=== PATIENT | female | born 1985 | race Caucasian/White ===

== ENCOUNTER 2020-04-17 | Outpatient (REF) | payer BC, SELFPAY | END 2020-04-17 00:01 | disposition home or self-care (01) | LOC: HO.WFDLNP | PROVIDERS: Visit Provider Family Medicine | DX: Z20.828 Contact with and (suspected) exposure to other viral communicable diseases (principal) | CPT/HCPCS: U0003 ==

== ENCOUNTER 2023-04-29 10:41 | Observation (INO) | payer BC, OTHER, SELFPAY ==
[2023-04-29] VITALS (7 sets, daily range): BP systolic 96–123; BP diastolic 54–81; PULSE 71–90; RESP 11–18; TEMP 36.6–37.1; O2SAT 96–100; BMI 22.2
--- NOTE | ~2023-04-29 | CT_ITS ---
EXAMINATION: CT ANGIOGRAM OF THE CHEST WITH AND WITHOUT CONTRAST (CT PULMONARY ANGIOGRAM FOR PE) CLINICAL INFORMATION: Reason for Exam SOB, dizziness, hypoxia, high risk factors COMPARISON: None available. TECHNIQUE: Prior to contrast administration, noncontrast localization images were obtained. Subsequently, multidetector volumetric imaging was performed from the thoracic inlet to below the diaphragms following the administration of 80 mL Omnipaque 350 intravenous contrast. No contrast reaction reported Sagittal, coronal, and MIP oblique sagittal reformatted images were obtained on the CT workstation, uploaded to PACS, and reviewed. This CT examination was performed using dose optimization techniques as appropriate, variously including the following: *Automated exposure control *Adjustment of mA and/or kV according to patient size (this includes techniques or standardized protocols for targeted exams where dose is matched to indication/reason for exam; i.e. extremities or head) *Use of iterative reconstruction technique Total exam dose-length product 237 mGy-cm FINDINGS: QUALITY OF STUDY/CONTRAST BOLUS: Satisfactory. PULMONARY ARTERIES: No pulmonary emboli. THORACIC AORTA: There is a right aortic arch with no evidence of aneurysm or dissection. LUNG: There is mild centrilobular emphysema without acute consolidation. There are no pulmonary nodules, mass or groundglass density. PLEURA: There is no pleural effusion, thickening or calcification. MEDIASTINUM: Normal heart size. No pericardial effusion. No hilar or mediastinal lymphadenopathy. No evidence of septal bowing or right heart strain. CORONARY ARTERY CALCIFICATION: None visualized on this study. CHEST WALL/AXILLA: No axillary or internal mammary lymphadenopathy. OSSEOUS STRUCTURES: No acute or suspicious osseous abnormality. UPPER ABDOMEN: Visualized liver, spleen, pancreas and bilateral adrenal glands are unremarkable. No reflux of contrast into the hepatic veins to suggest elevated right heart pressures. CT/CT angio chest PE protocol IMPRESSION: 1. No evidence of PE. 2. No evidence of aortic dissection or aneurysm. 3. Right aortic arch. 4. Centrilobular emphysema without acute process. VTE: negative.
--- NOTE | 2023-04-29 11:17 | ECG_ITS ---
Test Reason : sob/chest pain Blood Pressure : / mmHG Vent. Rate : 065 BPM Atrial Rate : 065 BPM P-R Int : 130 ms QRS Dur : 084 ms QT Int : 430 ms P-R-T Axes : 035 073 044 degrees QTc Int : 447 ms Normal sinus rhythm Nonspecific ST and T wave abnormality Borderline ECG No previous ECGs available Referred By: Pauline Nunez Electronically Signed By:DAVI FIGUEREDO
--- NOTE | 2023-04-29 11:17 | ED.GENADULT ---
HPI - General Adult General Chief complaint: Upper Respiratory Symptoms Stated complaint: Respiratory Issues Time Seen by Provider: 04/29/23 11:16 Source: patient Mode of arrival: ambulatory Limitations: no limitations History of Present Illness HPI narrative: Patient is a 37 year old assigned female at with no reported medical history presenting to the emergency department today with chest pain, shortness of breath, and intermittent racing heart. Patient states that over the last 3 days she has felt as though there is an elephant sitting on her chest. Patient states that when she walks 10 feet, she becomes very short of breath and her heart rate increases greatly. Patient denies any dizziness, lightheadedness, abdominal pain, nausea, vomiting, fever, chills, blurry vision, double vision, loss of vision, back pain, night sweats, pain with urination, increased urinary frequency, increased urinary urgency, blood in her urine or stool, syncope or a near syncopal episode, recent trauma or falls, bowel incontinence, bladder incontinence, bowel retention, bladder retention, or any other complaints at this time. Onset (ago): day(s) (3) Location: chest Radiation: non-radiation Severity: moderate Severity scale (1-10): 5 Quality: aching Pain Consistency: constant Relieving factors: none Exacerbating factors: other (activity) Associated symptoms: chest pain and shortness of breath Treatments prior to arrival: none Related Data Home Medications Medication Instructions Recorded Confirmed No Known Home Meds 04/29/23 04/29/23 Allergies Allergy/AdvReac Type Severity Reaction Status Date / Time No Known Allergies Allergy Verified 04/17/20 12:44 Review of Systems Constitutional: Constitutional: Reports no additional constitutional complaints, Denies chills, Denies fever(s) and Denies night sweats Eyes: Eyes: Reports no additional eye complaints, Denies blurry vision, Denies change in vision, Denies diplopia, Denies eye discharge, Denies loss of vision and Denies eye pain ENT: Denies dizziness Cardiovascular: Cardiovascular: Reports no additional cardiovascular complaints, Reports chest pain, Denies lightheadedness, Denies Loss of Consciousness, Reports palpitations, Reports dyspnea and Reports dyspnea on exertion Respiratory: Respiratory: Reports no additional respiratory complaints, Reports dyspnea and Reports dyspnea on exertion Gastrointestinal: Gastrointestinal: Reports no additional gastrointestinal complaints, Denies abdominal pain, Denies melena, Denies hematochezia, Denies change in bowel habits and Denies change in stool character Genitourinary: Genitourinary: Denies hematuria, Denies urinary frequency, Denies dysuria, Denies urinary incontinence, Denies urinary hesitancy and Denies urinary urgency Musculoskeletal: Musculoskeletal: Reports no additional musculoskeletal complaints, Denies numbness and Denies tingling Neurologic: Denies dizziness, Denies loss of vision, Denies numbness and Denies tingling Psychiatric: Psychiatric: Reports no additional psychiatric complaints Endocrine: Endocrine: Reports no additional endocrine complaints and Reports palpitations Hematologic/Lymphatic: Hematologic/Lymphatic: Reports no additional hematologic/lymphatic complaints Allergic/Immunologic: Allergic/Immunologic: Reports no additional allergic/immunologic complaints COUNT INCLUDES THE [facility] Past Medical History Attestation statement: The following information was validated with the patient. Source: old records reviewed and nursing notes reviewed Medical History (Updated 04/30/23 @ 10:28 by AMRIT Holland) High blood copper level Social History Social History Patient Tobacco Use Status: Never used Tobacco Smoked in Last 30 Days: No Use of substances other than those prescribed or required for medical reasons: No Advance Directives: No Advance Directives Information Provided: No Nutrition Risks: No Nutritional Risk Physical Exam ED Vital Signs: Vital Signs - 24 hr 04/29/23 11:19 04/29/23 14:00 04/29/23 17:10 Temperature 97.8 F 98.7 F Pulse Rate 75 78 79 Respiratory Rate 18 18 11 L Blood Pressure 113/68 123/81 Pulse Oximetry 96 98 100 Oxygen Delivery Method Room Air Room Air Room Air 04/29/23 17:11 Temperature Pulse Rate Respiratory Rate Blood Pressure Pulse Oximetry 100 Oxygen Delivery Method Room Air BMI result Body Mass Index 22.2 Const General: cooperative, no acute distress, alert and awake Nutritional Appearance: well nourished Orientation/consciousness: patient oriented x3 Limitations: no limitations HENMT Head: Yes normal to inspection and Yes atraumatic Ears: hearing grossly normal bilaterally and external ears normal General nose exam: Normal external nose present, no nasal discharge noted and no epistaxis Face and sinus: Yes normal facial exam, No abrasion and No laceration Mouth: Normal oral and palatal mucosa present, no drooling and no muffled voice Eyes General: appearance normal, both eyes and all related structures Periorbital: periorbital findings normal Eyelids: Yes eyelids normal Conjunctivae: conjunctivae normal Pupils: Equal, round and reactive pupils present EOM: EOMs intact bilaterally Neck Neck: Yes normal visual inspection, Yes full ROM and Yes no lymphadenopathy Chest Chest palpation & inspection: normal inspection of the chest Resp Effort & Inspection: normal respiratory effort and able to speak in complete sentences Auscultation: clear to auscultation bilaterally Cardio Rate: regular rate Rhythm: regular rhythm GI Inspection: Yes normal to inspection Neuro General: patient oriented x3 and moves all extremities Cranial nerves: Yes Equal, round and reactive pupils present Cognition (Neuro): normal cognition Motor exam (neuro): 5/5 motor strength present throughout Sensory Exam: Normal double simultaneous stimulation for sensation Coordination: [id number] test normal Extrem General: Yes normal to inspection, Yes full ROM and Yes capillary refill normal Psych Appearance: grossly normal Mental Status: mental status grossly normal Affect: normal affect Attitude: cooperative Thought process: Normal thought process present Thought content: Normal thought content present Insight: Good insight present (Psych) Medications Administered Generic Name Dose Route Start Last Admin Trade Name Freq PRN Reason Stop Dose Admin Enoxaparin Sodium 40 mg 04/29/23 19:00 04/29/23 19:51 Enoxaparin Sodium 40 Mg/0.4 Ml Syringe SUBCUT 40 mg Q24H GILDA Administration Sodium Chloride 3 ml 04/30/23 00:00 04/30/23 03:02 0.9 % Sodium Chloride Flush 3 Ml Syringe IVFLUSH 3 ml QSHIFT GILDA Administration Discontinued Medications Generic Name Dose Route Start Last Admin Trade Name Freq PRN Reason Stop Dose Admin Potassium Chloride 10 meq in 100 mls @ 100 mls/hr 04/29/23 13:00 04/29/23 16:00 Potassium Chloride/H20 IV 04/29/23 14:59 Infused Q1H GILDA Infusion Ibuprofen 600 mg 04/30/23 03:18 04/30/23 07:27 Ibuprofen 600 Mg Tablet PO 04/30/23 03:19 600 mg ONCE ONE Administration Iohexol 65 ml 04/29/23 12:52 04/29/23 12:56 Iohexol 350 Mg/Ml 100 Ml Infus..Btl IV 04/29/23 12:53 65 ml ONCE ONE Administration Potassium Chloride 20 meq 04/29/23 12:51 04/29/23 13:20 Potassium Chloride Er 20 Meq Tab.Er.Prt PO 04/29/23 12:52 20 meq ONCE ONE Administration Potassium Chloride 40 meq 04/29/23 17:07 04/29/23 17:20 Potassium Chloride Packet 20 Meq Packet PO 04/29/23 17:08 40 meq ONCE ONE Administration Medical Decision Making Medical Decision Making [facility] Narrative: Patient is a 37 year old assigned female at with no reported medical history presenting to the emergency department today with chest pressure, shortness of breath, and intermittent racing heart. Patient's physical exam was unremarkable. Patient's blood work showed a decreased potassium of 2.8 but was otherwise unremarkable. Patient's urine showed no acute process. Patient's EKG showed some t wave inversion but otherwise unremarkable. Patient's CT chest showed evidence of possible emphysema but was otherwise unremarkable. Patient was given PO and IV Potassium and her CMP was repeated. Potassium remained at 2.8. Patient's symptoms of dyspnea with exertion are concerning for an anginal equivalent. Consulted my attending physician Dr. Krause, who recommended getting the patient admitted. I spoke to the hospitalist team who agreed to admission. I explained my physical exam findings as well as all test results to the patient. I answered all questions asked by the patient. Patient verbalized agreement and understanding with this treatment plan and admission. Differential Diagnosis Differential Diagnoses: The differential diagnosis associated with the presentation includes Angina Anginal equivalent Dyspnea Emphysema COPD NSTEMI STEMI PE URI Cardiomyopathy Admission/Observation Consideration of admission/observation: Escalation of care including admission/observation considered Patient to be admitted. Consult Healthcare Provider Management of the patient was discussed with: Hospitalist (agreed to admission.) Lab Data [facility] Lab Attestation statement: I reviewed the patient's lab results. My interpretation of these results are in the MDM Rationale portion of this note. 04/30/23 05:22 04/30/23 05:22 Labs: Lab Results 04/29/23 04/29/23 04/29/23 Range/Units 11:41 11:42 15:44 WBC 4.7 L (4.8-10.8) X10*3/uL RBC 4.56 (4.20-5.50) X10*6/uL Hgb 15.1 (12.0-16.0) g/dl Hct 40.5 (37.0-47.0) % MCV 88.8 (80.0-98.0) fL MCH 33.1 H (27.0-33.0) pg MCHC 37.3 H (31.0-35.0) g/dl RDW 11.1 (11.0-16.0) % Plt Count 164 (160-400) X10*3/uL MPV 10.3 (9.4-12.3) fL Immature Gran % (Auto) 0.2 (0.0-0.4) % Neut % (Auto) 42.9 L (45-73) % Lymph % (Auto) 42.6 H (20-40) % Thomas % (Auto) 13.3 H (2-11) % Eos % (Auto) 0.6 (0-4) % Baso % (Auto) 0.4 (0-2) % Lymph # (Auto) 2.0 (1.2-4.9) X10*3/uL Thomas # (Auto) 0.6 (0.1-1.2) X10*3/uL Eos # (Auto) 0.0 (0.0-0.4) X10*3/uL Baso # (Auto) 0.0 (0.0-0.2) X10*3/uL Abs Immat Gran (auto) 0.01 (0.00-0.03) X10*3/uL Absolute Neuts (auto) 2.0 (2.0-8.3) x10*3/uL Absolute Nucleated RBC 0.000 (0.0-0.012) X10*3/uL Nucleated RBC % (auto) 0.0 (0.0-0.2) /100WBC PT 11.6 (11.1-13.3) SEC INR 1.0 (0.9-1.1) APTT 27.2 (26.0-36.4) SEC Sodium 138 136 (135-145) mmol/L Potassium 2.8 L 2.8 L (3.3-5.1) mmol/L Chloride 98 101 (96-108) mmol/L Carbon Dioxide 29 26 (22-29) mmol/L Anion Gap 14 12 (12-20) BUN 17 H 14 (9-16) mg/dL Creatinine 0.89 0.89 (0.5-1.4) mg/dL Estim Creat Clear Calc 85.6 85.6 Estimated GFR > 60 > 60 Random Glucose 92 110 (60-115) mg/dL Calcium 9.5 9.1 (8.4-10.2) mg/dL Magnesium 2.2 (1.6-2.6) mg/dL Total Bilirubin 0.8 0.8 (0.0-1.0) mg/dL AST 22 19 (5-31) U/L ALT 13 13 (0-31) U/L Alkaline Phosphatase 90 81 (39-117) U/L Troponin I High Sens < 2.7 (<3.5-17.0) ng/L B-Natriuretic Peptide < 10 (<100) pg/mL Total Protein 7.6 7.2 (6.5-8.0) g/dL Albumin 4.5 4.3 (3.5-5.0) g/dL TSH 1.03 (0.32-4.0) uIU/mL Beta HCG, Quant < 2 mIU/mL Influenza Type A (PCR) NEGATIVE (Negative) Influenza Type B (PCR) NEGATIVE (Negative) RSV RNA Qual (PCR) NEGATIVE (Negative) SARS-CoV-2 RNA (RT-PCR) NEGATIVE (Negative) 04/29/23 Range/Units 17:17 WBC (4.8-10.8) X10*3/uL RBC (4.20-5.50) X10*6/uL Hgb (12.0-16.0) g/dl Hct (37.0-47.0) % MCV (80.0-98.0) fL MCH (27.0-33.0) pg MCHC (31.0-35.0) g/dl RDW (11.0-16.0) % Plt Count (160-400) X10*3/uL MPV (9.4-12.3) fL Immature Gran % (Auto) (0.0-0.4) % Neut % (Auto) (45-73) % Lymph % (Auto) (20-40) % Thomas % (Auto) (2-11) % Eos % (Auto) (0-4) % Baso % (Auto) (0-2) % Lymph # (Auto) (1.2-4.9) X10*3/uL Thomas # (Auto) (0.1-1.2) X10*3/uL Eos # (Auto) (0.0-0.4) X10*3/uL Baso # (Auto) (0.0-0.2) X10*3/uL Abs Immat Gran (auto) (0.00-0.03) X10*3/uL Absolute Neuts (auto) (2.0-8.3) x10*3/uL Absolute Nucleated RBC (0.0-0.012) X10*3/uL Nucleated RBC % (auto) (0.0-0.2) /100WBC PT (11.1-13.3) SEC INR (0.9-1.1) APTT (26.0-36.4) SEC Sodium (135-145) mmol/L Potassium (3.3-5.1) mmol/L Chloride (96-108) mmol/L Carbon Dioxide (22-29) mmol/L Anion Gap (12-20) BUN (9-16) mg/dL Creatinine (0.5-1.4) mg/dL Estim Creat Clear Calc Estimated GFR Random Glucose (60-115) mg/dL Calcium (8.4-10.2) mg/dL Magnesium (1.6-2.6) mg/dL Total Bilirubin (0.0-1.0) mg/dL AST (5-31) U/L ALT (0-31) U/L Alkaline Phosphatase (39-117) U/L Troponin I High Sens < 2.7 (<3.5-17.0) ng/L B-Natriuretic Peptide (<100) pg/mL Total Protein (6.5-8.0) g/dL Albumin (3.5-5.0) g/dL TSH (0.32-4.0) uIU/mL Beta HCG, Quant mIU/mL Influenza Type A (PCR) (Negative) Influenza Type B (PCR) (Negative) RSV RNA Qual (PCR) (Negative) SARS-CoV-2 RNA (RT-PCR) (Negative) Independent Interpretation I performed an independent interpretation of an: EKG and CT Scan Interpretation: My interpretation is in agreement with the radiologist's impression of this imaging study. EXAMINATION: CT ANGIOGRAM OF THE CHEST WITH AND WITHOUT CONTRAST (CT PULMONARY ANGIOGRAM FOR PE) CLINICAL INFORMATION: Reason for Exam SOB, dizziness, hypoxia, high risk factors COMPARISON: None available. TECHNIQUE: Prior to contrast administration, noncontrast localization images were obtained. Subsequently, multidetector volumetric imaging was performed from the thoracic inlet to below the diaphragms following the administration of 80 mL Omnipaque 350 intravenous contrast. No contrast reaction reported Sagittal, coronal, and MIP oblique sagittal reformatted images were obtained on the CT workstation, uploaded to PACS, and reviewed. This CT examination was performed using dose optimization techniques as appropriate, variously including the following: *Automated exposure control *Adjustment of mA and/or kV according to patient size (this includes techniques or standardized protocols for targeted exams where dose is matched to indication/reason for exam; i.e. extremities or head) *Use of iterative reconstruction technique Total exam dose-length product 237 mGy-cm FINDINGS: QUALITY OF STUDY/CONTRAST BOLUS: Satisfactory. PULMONARY ARTERIES: No pulmonary emboli. THORACIC AORTA: There is a right aortic arch with no evidence of aneurysm or dissection. LUNG: There is mild centrilobular emphysema without acute consolidation. There are no pulmonary nodules, mass or groundglass density. PLEURA: There is no pleural effusion, thickening or calcification. MEDIASTINUM: Normal heart size. No pericardial effusion. No hilar or mediastinal lymphadenopathy. No evidence of septal bowing or right heart strain. CORONARY ARTERY CALCIFICATION: None visualized on this study. CHEST WALL/AXILLA: No axillary or internal mammary lymphadenopathy. OSSEOUS STRUCTURES: No acute or suspicious osseous abnormality. UPPER ABDOMEN: Visualized liver, spleen, pancreas and bilateral adrenal glands are unremarkable. No reflux of contrast into the hepatic veins to suggest elevated right heart pressures. CT/CT angio chest PE protocol IMPRESSION: 1. No evidence of PE. 2. No evidence of aortic dissection or aneurysm. 3. Right aortic arch. 4. Centrilobular emphysema without acute process. VTE: negative. Dictated By: Carroll Rock MD Signed By: Electronically signed by Carroll Rock MD 04/29/23 1402 Vent. Rate: 065 BPM Atrial Rate: 065 BPM P-R Int: 130 ms QRS Dur: 084 ms QT Int: 430 ms P-R-T Axes: 035 073 044 degrees QTc Int: 447 ms Normal sinus rhythm Nonspecific ST and T wave abnormality Borderline ECG No previous ECGs available Electronically Signed By:JACKSON FIGUEREDO Dictated By: Jackson Figueredo MD Signed By: Electronically signed by Jackson Figueredo MD 04/29/23 7804 Radiology Impression Discussion of test interpretation with radiology: I have reviewed the radiologist's reading. Critical Care Time Critical Care Time Critical Care Time: Yes Total Critical Care Time: 45 Attestation: I spent 45 minutes of Critical Care Time with this patient. This does not include time spent on separately reported billable procedures. Discharge Plan Discharge Clinical Impression: Dyspnea on exertion, Palpitation, Hypokalemia Patient Disposition: Admitted As Inpatient
[2023-04-29 11:48] LABS: MANUAL DIFF FLAG NO
[2023-04-29 11:50] LABS: Basophils Percent Auto 0.4 % (0-2); Eosinophils Percent Auto 0.6 % (0-4); Hematocrit 40.5 % (37.0-47.0); Hemoglobin 15.1 g/dl (12.0-16.0); Imm Gran Abs Auto 0.01 X10*3/uL (0.00-0.03); Imm Gran Pct Auto 0.2 % (0.0-0.4); Lymphocytes Percent Auto 42.6 % (20-40); Mean Corpuscular HGB Conc 37.3 g/dl (31.0-35.0); Mean Corpuscular Hemoglobin 33.1 pg (27.0-33.0); Mean Corpuscular Volume 88.8 fL (80.0-98.0); Mean Platelet Volume 10.3 fL (9.4-12.3); Monocytes Absolute Auto 0.6 X10*3/uL (0.1-1.2); Monocytes Percent Auto 13.3 % (2-11); Neutrophils Percent Auto 42.9 % (45-73); Platelet Count 164 X10*3/uL (160-400); Red Blood Count 4.56 X10*6/uL (4.20-5.50); Red Cell Distribution Width 11.1 % (11.0-16.0); White Blood Count 4.7 X10*3/uL (4.8-10.8)
[2023-04-29 12:00] LABS: Prothrombin Time 11.6 SEC (11.1-13.3)
[2023-04-29 12:03] LABS: Partial Thromboplastin Time 27.2 SEC (26.0-36.4)
[2023-04-29 12:10] LABS: B Type Natriuretic Peptide < 10 pg/mL (<100); HCG Quantitative < 2 mIU/mL
[2023-04-29 12:11] LABS: Troponin-I High Sensitivity < 2.7 ng/L (<3.5-17.0)
[2023-04-29 12:17] LABS: Alanine Aminotransferase 13 U/L (0-31); Albumin Level 4.5 g/dL (3.5-5.0); Alkaline Phosphatase 90 U/L (39-117); Anion Gap 14 (12-20); Aspartate Amino Transferase 22 U/L (5-31); Bilirubin Total 0.8 mg/dL (0.0-1.0); Blood Urea Nitrogen 17 mg/dL (9-16); Carbon Dioxide 29 mmol/L (22-29); Creatinine Clr Calc Pharmacy 85.6; Estimated Glomerular Filt Rate > 60; Glucose Random 92 mg/dL (60-115); Magnesium 2.2 mg/dL (1.6-2.6); Total Protein 7.6 g/dL (6.5-8.0)
[2023-04-29 12:33] LABS: Calcium 9.5 mg/dL (8.4-10.2); Chloride 98 mmol/L (96-108); Potassium 2.8 mmol/L (3.3-5.1); Sodium 138 mmol/L (135-145)
[2023-04-29 12:38] LABS: Influenza A PCR NEGATIVE (Negative); Influenza B PCR NEGATIVE (Negative); Resp Syncy Virus RNA Qual PCR NEGATIVE (Negative); SARS COV2 PCR INHOUSE NEGATIVE (Negative)
[2023-04-29] MEDS: iohexoL 350 MG/ML 100 ML INFUS..BTL 65 ML IV (12:56)
[2023-04-29] MEDS: Potassium Chloride ER 20 MEQ TAB.ER.PRT PO (13:20)
[2023-04-29] MEDS: Potassium Chloride/H20 10 MEQ/100 ML PIGGYBACK 100 MEQ IV ×2 (13:30→14:32)
[2023-04-29 16:03] LABS: Alanine Aminotransferase 13 U/L (0-31); Albumin Level 4.3 g/dL (3.5-5.0); Alkaline Phosphatase 81 U/L (39-117); Anion Gap 12 (12-20); Aspartate Amino Transferase 19 U/L (5-31); Bilirubin Total 0.8 mg/dL (0.0-1.0); Blood Urea Nitrogen 14 mg/dL (9-16); Calcium 9.1 mg/dL (8.4-10.2); Carbon Dioxide 26 mmol/L (22-29); Chloride 101 mmol/L (96-108); Creatinine Clr Calc Pharmacy 85.6; Estimated Glomerular Filt Rate > 60; Glucose Random 110 mg/dL (60-115); Potassium 2.8 mmol/L (3.3-5.1); Sodium 136 mmol/L (135-145); Total Protein 7.2 g/dL (6.5-8.0)
--- NOTE | 2023-04-29 17:05 | PHA.MEDREC ---
Pharmacy Consult ? Medication Reconciliation Pharmacy has completed the medication reconciliation. Patient reported no medications at home. Lidia Cosme, HosseinD
[2023-04-29] MEDS: Potassium Chloride Packet 20 MEQ PACKET 40 MEQ PO (17:20)
[2023-04-29 17:45] LABS: Troponin-I High Sensitivity < 2.7 ng/L (<3.5-17.0)
--- NOTE | 2023-04-29 18:15 | PM.IMHP ---
History of Present Illness Date of Service: 04/29/23 Attending physician on admission: Wallace Moore Chief Complaint: quiñones, exertional chest pain, palpitations 37 year old female with any significant past medical history presented to the ED earlier today for evaluation of dyspnea on exertion, exertional chest pain, palpitations that have been ongoing for 5 days. She states about 10 days ago she was experiencing retrosternal chest pressure both at rest and with exertion but this resolved spontaneously without any associated symptoms. About 5 days ago, she reports feeling generally unwell, fatigued with a dry cough and slightly elevated temperatures of 99.5 as well as myalgias. She also reports she has had an occipital headache for 10 days. States she does have chronic headaches but these are typically migraines and this headache feels different. She states that since the onset of the symptoms, she has been experiencing significant dyspnea on exertion, exertional chest pain and palpitations. She has been measuring her heart rate and with just 3 steps, heart rate will elevate between 140-160. She does endorse feeling lightheaded at this time as well. She states within 1 minute of resting, symptoms resolve. Also endorses intermittent pedal edema that has been ongoing for the last 8 years since her last . She is eating and drinking without any difficulty. Denies any sore throat, congestion, rigors, abdominal pain, nausea, vomiting, diarrhea, urinary symptoms, shortness of breath at rest, our ongoing chest pain at rest. On arrival, vital stable, blood pressure slightly soft on admission at 96/54. She is very mildly leukopenic 4.7, borderline neutropenic with 42.9% neutrophils, ANC 2.0. Renal function is normal, electrolytes normal except for potassium of 2.8. Troponin x2 below detectable limits. BNP below detectable limits. TSH 1.03. HCG below detectable limits. Negative for influenza, RSV, COVID-19. CTA of the chest is negative for PE and is without any evidence of aortic dissection or aneurysm. 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 There is also central OB alert emphysema without acute process. Patient denies having ever smoked cigarettes but was exposed to secondhand smoke throughout her childhood. Denies any illicit drug use or alcohol use. In the ED, potassium repleted with 20 mEq KCL as well as 20 mEq IV KCl without any improvement in potassium level. Of note, patient was seen by a functional medicine specialist over the summer due to heavy menses. She was noted to have toxic levels of serum copper at 208. Estrogen containing control was then discontinued but copper level remained elevated at 205. She states that her PCP then checked ceruloplasmin levels which were within normal limits per the patient to rule out Fermin's disease. Review of Systems Review of Systems: General: No malaise, unintentional weight loss. +fevers HEENT: No blurred vision, diplopia. No sore throat, nasal congestion, rhinorrhea, sinus pain, ear pain Cardiovascular: +chest pain, +palpitations, +BLE edema Respiratory: +QUIÑONES, +cough. No wheezing, orthopnea GI: No abdominal pain, nausea, vomiting, diarrhea : No dysuria, hematuria, increased urinary frequency MSK: No back pain. +myalgia Neuro: No weakness, paresthesias. +headache Skin: No rashes or lesions [facility] Medical History (Updated 04/29/23 @ 20:13 by AMRIT Rico) High blood copper level Social History Patient Tobacco Use Status: Never used Tobacco Smoked in Last 30 Days: No Use of substances other than those prescribed or required for medical reasons: No Advance Directives: No Advance Directives Information Provided: No Nutrition Risks: No Nutritional Risk Meds Allergies Allergy/AdvReac Type Severity Reaction Status Date / Time No Known Allergies Allergy Verified 04/17/20 12:44 Active Medications: Current Medications Acetaminophen (Acetaminophen Supp 650 Mg Supp.Rect) 650 mg OH Q6H PRN PRN Reason: Pain, Mild (Pain Scale 1-3) Enoxaparin Sodium (Enoxaparin Sodium 40 Mg/0.4 Ml Syringe) 40 mg SUBCUT Q24H GILDA Ondansetron HCl (Ondansetron Hcl 4 Mg/2 Ml Vial) 4 mg IVPUSH Q8H PRN PRN Reason: Nausea and Vomiting Senna (Sennosides 8.6 Mg Tablet) 17.2 mg PO BEDTIME PRN PRN Reason: Constipation Sodium Chloride (0.9 % Sodium Chloride Flush 3 Ml Syringe) 3 ml IVFLUSH QSHIFT [facility] Home Medications Medication Instructions Recorded Confirmed Last Taken Type No Known Home Meds 04/29/23 04/29/23 Unknown History Physical Exam Vital Signs and Narrative: Vital Signs: Last Vital Signs Temp 98.7 F 04/29/23 17:10 Pulse 79 04/29/23 17:10 Resp 11 L 04/29/23 17:10 BP 123/81 04/29/23 17:10 Pulse Ox 100 04/29/23 17:11 O2 Del Method Room Air 04/29/23 17:11 BMI result Body Mass Index 22.2 Constitutional - Awake and Alert, No apparent distress Eyes - PERRLA, EOMI. No Marlee Yanet ring Cardiovascular - S1S2, RRR, No edema Respiratory - Normal lung expansion, Normal respiratory effort, No respiratory distress, CTA bilaterally Gastrointestinal - NT / ND; +BS; No rebound or guarding Extremities - no calf tenderness bilaterally, no swelling Musculoskeletal - Normal inspection, normal ROM Skin - Warm/Dry Neurological - Alert & oriented x3 Psychological - Appropriate affect Results Labs 04/29/23 11:42 04/29/23 15:44 Labs: Laboratory Results - last 24 hr 04/29/23 04/29/23 11:42 15:44 MCV 88.8 MCH 33.1 H MCHC 37.3 H RDW 11.1 Plt Count 164 MPV 10.3 Immature Gran % (Auto) 0.2 Neut % (Auto) 42.9 L Lymph % (Auto) 42.6 H [place] % (Auto) 13.3 H Eos % (Auto) 0.6 Baso % (Auto) 0.4 Lymph # (Auto) 2.0 [place] # (Auto) 0.6 Eos # (Auto) 0.0 Baso # (Auto) 0.0 Abs Immat Gran (auto) 0.01 Absolute Neuts (auto) 2.0 Absolute Nucleated RBC 0.000 Nucleated RBC % (auto) 0.0 PT 11.6 INR 1.0 APTT 27.2 Anion Gap 14 12 Estim Creat Clear Calc 85.6 85.6 Estimated GFR > 60 > 60 Random Glucose 92 110 Calcium 9.5 9.1 Magnesium 2.2 Total Bilirubin 0.8 0.8 AST 22 19 ALT 13 13 Alkaline Phosphatase 90 81 B-Natriuretic Peptide < 10 Total Protein 7.6 7.2 Albumin 4.5 4.3 Beta HCG, Quant < 2 Influenza Type A (PCR) NEGATIVE Influenza Type B (PCR) NEGATIVE RSV RNA Qual (PCR) NEGATIVE SARS-CoV-2 RNA (RT-PCR) NEGATIVE Imaging Radiologist's Impressions: Impressions Chest CTA 04/29/23 13:17 IMPRESSION: 1. No evidence of PE. 2. No evidence of aortic dissection or aneurysm. 3. Right aortic arch. 4. Centrilobular emphysema without acute process. VTE: negative. Assessment and Plan (1) Myalgia: Status: Acute (2) Headache: Status: Acute (3) Exertional chest pain: Status: Acute (4) Palpitation: Status: Acute (5) Dyspnea on exertion: Status: Acute (6) Hypokalemia: Status: Acute Plan 37 year old female with any significant past medical history to be observed for exertional symptoms of dyspnea, chest pressure, lightheadedness, palpitations as well as hypokalemia. #dyspnea on exertion, exertional chest pressure, lightheadedness, palpitations -etiology unclear at this time -EKG shows normal sinus rhythm, rate [address]/T-wave abnormality, no ST or depressions -CTA chest negative for any PE -?r/t hypokalemia -echo ordered -check tick panel given constitutional symtoms, headache, myalgia, low grade fever in conjunction with the above to rule out lyme carditis -Monitor on telemetry #Acute hypokalemia -etiology unclear at this time -refractory despite 20meq KCL PO and 20meq KCl IV. K2.8 -Given addl 40meq KCl PO -Has had high copper levels which can cause hypokalemia. Will recheck serum copper levels and ceruloplasmin -Recheck K now, follow am #Emphysema -incidentally noted on chest CT -no history of smoking, does have secondhand smoking exposure -will check for antitrypsin deficiency -no acute exacerbation, albuterol p.r.n. DVT prophylaxis-Lovenox Full code Quality Stroke Does the patient have a stroke diagnosis?: No VTE Prior VTE?: No VTE Risk Level:: Medical - moderate - high VTE Device Contraindication: Treatment Not Indicated VTE Drug Contraindication: N/A - Med Ordered
[2023-04-29 18:53] LABS: TSH reflex Free T4 1.03 uIU/mL (0.32-4.0)
[2023-04-29] MEDS: Enoxaparin Sodium 40 MG/0.4 ML SYRINGE SUBCUT (19:51)
--- NOTE | 2023-04-29 19:54 | PC.NURSE ---
orthos done, vitals stable. urine sample pending. no reports of pain at the moment. no distress noted. awaiting bed assignment
[2023-04-29 20:55] LABS: Anion Gap 9 (12-20); Carbon Dioxide 27 mmol/L (22-29); Chloride 105 mmol/L (96-108); Potassium 3.3 mmol/L (3.3-5.1); Sodium 138 mmol/L (135-145)
--- NOTE | 2023-04-29 22:28 | PC.NURSE ---
pt resting comfortably with eyes closed, breathing even and unlabored. no apparent distress noted at this time. call galvan w/in reach
[2023-04-30 01:19] VITALS: BP 102/72; PULSE 76; RESP 16; TEMP 37.3; O2SAT 98
--- NOTE | 2023-04-30 01:22 | MHC.EDTECH ---
This tech took over care of patient at this time,hourly rounds and vitals completed,Patient ambulated to the bathroom with a steady gait, urine sample collected and sent to lab. Belonging list completed and copy placed in chart, Patient has 245.00 Mckinney in pocketbook,will keep at bedside.
--- NOTE | 2023-04-30 01:30 | MHC.EDTECH ---
Patient was in hospital attire, but changed into [facility] for comfort
[2023-04-30 01:46] LABS: Appearance Urine Clear; Color Urine Yellow; Glucose Urine UA Negative (Negative); Leukocyte Esterase Urine Trace (Negative); Nitrite Urine Negative (Negative); PH 5.5 (5.0-9.0); Specific Gravity - Urine 1.025 (1.005-1.025); UMIC TRIGGER UACC YES; Urine Blood Negative (Negative); Urine Ketones Negative (Negative); Urine Protein Negative (Neg-Trace)
[2023-04-30 01:58] LABS: Bacteria Urine None Seen (None Seen); Hyaline Casts Urine 0-2 /LPF (0-2); RBC Urine 0-2 /HPF (0-2); Squamous Epithelial Cell Urine 0-2 /HPF (0-2); WBC Urine 0-5 /HPF (0-5)
[2023-04-30] MEDS: 0.9 % Sodium Chloride Flush 3 ML SYRINGE IVFLUSH (03:02)
--- NOTE | 2023-04-30 04:02 | PC.NURSE ---
pt requested ibuprofen for headache. order obtained from . pt now asleep for the first time tonight. 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
[2023-04-30 06:33] VITALS: BP 104/69; PULSE 100; RESP 14; TEMP 37; O2SAT 96
[2023-04-30 06:51] LABS: Anion Gap 11 (12-20); Blood Urea Nitrogen 17 mg/dL (9-16); Calcium 9.2 mg/dL (8.4-10.2); Carbon Dioxide 25 mmol/L (22-29); Chloride 106 mmol/L (96-108); Creatinine Clr Calc Pharmacy 89.6; Estimated Glomerular Filt Rate > 60; Glucose Random 91 mg/dL (60-115); Magnesium 2.2 mg/dL (1.6-2.6); Potassium 3.4 mmol/L (3.3-5.1); Sodium 139 mmol/L (135-145)
[2023-04-30 07:00] LABS: Basophils Percent Auto 0.3 % (0-2); Hematocrit 37.6 % (37.0-47.0); Hemoglobin 13.9 g/dl (12.0-16.0); Lymphocytes Absolute Auto 1.8 X10*3/uL (1.2-4.9); Lymphocytes Percent Auto 60.9 % (20-40); MANUAL DIFF FLAG SCAN; Mean Corpuscular Hemoglobin 33.6 pg (27.0-33.0); Mean Corpuscular Volume 90.8 fL (80.0-98.0); Monocytes Absolute Auto 0.5 X10*3/uL (0.1-1.2); Monocytes Percent Auto 15.1 % (2-11); Neutrophils Absolute Auto 0.7 x10*3/uL (2.0-8.3); Neutrophils Percent Auto 22.7 % (45-73); Platelet Count 154 X10*3/uL (160-400); Red Blood Count 4.14 X10*6/uL (4.20-5.50); Red Cell Distribution Width 11.3 % (11.0-16.0); SCAN SMEAR FLAG 1
--- NOTE | 2023-04-30 07:00 | CA_ITS ---
Transthoracic Echocardiogram Patient (Last, First, Middle): Rebecca Coon K Gender: Female Date of : 1985 Age: 37 Procedure Date: 04/30/2023 Procedure Type: Transthoracic Echocardiogram Location: ER Height: 172.72 cm Weight: 66.23 kg BSA: 1.79 m2 Heart Rate: bpm BP: 107 / 71 mmHg Machine Staker: TO Referring MD: Shelia MARCUS Symptoms: quiñones, palpitations, exertional chest pain Study Quality: Technically Difficult/contrast ECG Rhythm: Sinus Conclusions: - The left ventricular systolic function is normal. The visually estimated ejection fraction is between 55-60%. - No obvious valvular pathology seen on this study. Findings Procedure Information Contrast agent, definity, is being given per protocol without apparent complications. The study quality is limited by patients body habitus. Left Ventricle Normal left ventricular cavity size. There is normal left ventricular wall thickness. The left ventricular systolic function is normal. The visually estimated ejection fraction is between 55-60%. There is no evidence of regional wall motion abnormalities. Diastolic function is normal for age. Right Ventricle Normal right ventricular cavity size and systolic function. Atria Both atria are normal in size. Aortic Valve The aortic valve was not well visualized. There is no aortic valve stenosis. There is no aortic valve regurgitation. Mitral Valve The mitral valve appears normal. There is trace mitral valve regurgitation. There is no mitral valve stenosis. Pulmonic Valve The pulmonic valve is likely normal. Tricuspid Valve There is trace tricuspid valve regurgitation. Tricuspid regurgitation envelope is inadequate for calculation of right ventricular systolic pressure. Great Vessels The aorta was not well visualized. The aortic annulus is normal in size. Venous The inferior vena cava is mildly dilated and collapses greater than 50% with inspiration. Pericardium/Pleural There is no evidence of pericardial effusion. Prior Study Comparison No prior study available for comparison. Recommendations, Care & Conclusions No obvious valvular pathology seen on this study. Measurements 2D Linear Measurements IVSd: 1.00 0.6-0.9/0.6-1.0 cm LVIDd: 4.08 3.9-5.3/4.2-5.9 cm LVIDd Index: 2.28 2.4-3.2/2.2-3.1 cm/m2 LVIDs: 2.57 2.0-3.6 cm LVPWd: 0.64 0.7-1.1 cm LA Diam: 2.60 2.7-3.8/3.0-4.0 cm LAIDs Index: 1.45 1.5-2.3 cm/m2 LV Mass: 123.59 67-162/88-224 g LV Mass Index: 69.05 43-95/49-115 g/m2 LVOT Diam: 2.10 3.0+(-)1.3 cm 2D Systolic Function EF 4C: 65.60 >55% Mitral Valve MV Pk E: 0.61 MV PK A: 0.29 MV Decel Time: 201.00 E/A: 2.10 E'Lateral: 14.90 E'Medial: 10.60 E/E' Med: 5.70 E/E' Lat: 4.10 PHT: 59.00 MVA PHT: 3.[address]: 3.03 Aortic Valve AoV Pk Jay: 1.29 AoV Mn Jay: 0.80 AoV VTI: 0.24 AoV Pk Grad: 7.00 Aov Mn Grad: 3.00 YURI Cont.VTI: 2.68 LVOT LVOT Pk Jay: 0.91 LVOT Mn Jay: 0.59 LVOT VTI: 0.19 LVOT Pk Grad: 3.00 LVOT Mn Grad: 2.00 LVOT Diam: 2.10 LVOT Area: 3.46 Diastolic Function MV Pk E: 0.61 MV Pk A: 0.29 E/A: 2.10 E'Medial: 10.60 E/E' Med: 5.70 E' Laterial: 14.90 E/E' Lat: 4.10 Right Ventricle TAPSE (mm): 20.00 TVS' Jay: 11.30 Tricuspid Valve RA Press: 8.00 Great Vessels Aorta Sinus of Valsalva: 2.85 2.0-3.5 cm Updated in Other Vendor System with Status of Final Jackson Bosch MD electronically signed on 04/30/2023 10:56:02 AM with status of Final
[2023-04-30 07:25] VITALS: BP 107/71; PULSE 68; RESP 14; TEMP 37; O2SAT 99
[2023-04-30] MEDS: Ibuprofen 600 MG TABLET PO (07:27)
--- NOTE | 2023-04-30 07:31 | PC.NURSE ---
Assumed care of patient from previous RN, patient resting on stretcher with respirations equal and unlabored. VS updated. Patient medicated with ordered ibuoprofen for headache. Patient given breakfast tray. Call galvan within reach.
[2023-04-30 07:53] LABS: SLIDE REVIEW VERIFIED
--- NOTE | 2023-04-30 09:32 | PC.NURSE ---
Assumed care of pt at this time.
[2023-04-30] MEDS: Potassium Chloride ER 20 MEQ TAB.ER.PRT 40 MEQ PO (10:34)
--- NOTE | 2023-04-30 11:46 | MHC.CM.PN ---
RAUDEL 04/30/23 Pt is independent, does not have any home health services or medical equipment. She will have a ride home upon DC. PCP is Sasha Espino. CM to follow and assist as needed with DC planning.
--- NOTE | 2023-04-30 12:32 | PM.DS ---
DS: Providers Provider Date of Service: 04/30/23 Date of admission: 04/29/23 18:02 Primary care physician: Sasha Espino MD DS: Diagnosis Discharge Diagnosis (1) Myalgia: Status: Acute (2) Headache: Status: Acute (3) Exertional chest pain: Status: Acute (4) Palpitation: Status: Acute (5) Dyspnea on exertion: Status: Acute (6) Hypokalemia: Status: Acute DS: Summary Hospital Course Hospital Course: from initial hpi: Chief Complaint: quiñones, exertional chest pain, palpitations 37 year old female with any significant past medical history presented to the ED earlier today for evaluation of dyspnea on exertion, exertional chest pain, palpitations that have been ongoing for 5 days. She states about 10 days ago she was experiencing retrosternal chest pressure both at rest and with exertion but this resolved spontaneously without any associated symptoms. About 5 days ago, she reports feeling generally unwell, fatigued with a dry cough and slightly elevated temperatures of 99.5 as well as myalgias. She also reports she has had an occipital headache for 10 days. States she does have chronic headaches but these are typically migraines and this headache feels different. She states that since the onset of the symptoms, she has been experiencing significant dyspnea on exertion, exertional chest pain and palpitations. She has been measuring her heart rate and with just 3 steps, heart rate will elevate between 140-160. She does endorse feeling lightheaded at this time as well. She states within 1 minute of resting, symptoms resolve. Also endorses intermittent pedal edema that has been ongoing for the last 8 years since her last . She is eating and drinking without any difficulty. Denies any sore throat, congestion, rigors, abdominal pain, nausea, vomiting, diarrhea, urinary symptoms, shortness of breath at rest, our ongoing chest pain at rest. On arrival, vital stable, blood pressure slightly soft on admission at 96/54. She is very mildly leukopenic 4.7, borderline neutropenic with 42.9% neutrophils, ANC 2.0. Renal function is normal, electrolytes normal except for potassium of 2.8. Troponin x2 below detectable limits. BNP below detectable limits. TSH 1.03. HCG below detectable limits. Negative for influenza, RSV, COVID-19. CTA of the chest is negative for PE and is without any evidence of aortic dissection or aneurysm. 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 There is also central OB alert emphysema without acute process. Patient denies having ever smoked cigarettes but was exposed to secondhand smoke throughout her childhood. Denies any illicit drug use or alcohol use. In the ED, potassium repleted with 20 mEq KCL as well as 20 mEq IV KCl without any improvement in potassium level. Of note, patient was seen by a functional medicine specialist over the summer due to heavy menses. She was noted to have toxic levels of serum copper at 208. Estrogen containing control was then discontinued but copper level remained elevated at 205. She states that her PCP then checked ceruloplasmin levels which were within normal limits per the patient to rule out Fermin's disease. hospital course: Patient was observed for dyspnea on exertion, palpitations. Troponins were negative, EKG without ischemic changes. Echocardiogram was normal. CTA of the chest was negative for PE but did show incidental finding of mild emphysema. Alpha 1 antitrypsin was sent out and is pending. Tick panel is also pending, as is repeat copper level. 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 She should drink plenty of fluids. Her acute hypokalemia was replaced and potassium is 3.4 on discharge. Lab should be repeated in about 1 week. Time Attestation Discharge coordination time: Greater than 30 minutes Quality: Safe Use of Opioids Does Pt have an Active Cancer Diagnosis on the Problem List?: No Quality: Stroke Does the patient have a stroke diagnosis?: No Physical Exam Vital Signs: Vital Signs: Last Vital Signs Temp 98.6 F 04/30/23 07:25 Pulse 68 04/30/23 07:25 Resp 14 04/30/23 07:25 BP 107/71 04/30/23 07:25 Pulse Ox 99 04/30/23 07:25 O2 Del Method Room Air 04/30/23 07:25 BMI result Body Mass Index 22.2 General: AO X 3, no acute distress Resp: CTA bilateral, no accessory muscles used CVS: S1,S2,RRR GI: soft, non tender, non distended Neuro: motor grossly intact, alert Psych: appropriate affect, appropriate insight DS: Data Data Completed and Pending Labs on day of discharge: Laboratory Results - last 24 hr 04/29/23 04/29/23 04/29/23 11:42 15:44 17:17 WBC RBC Hgb Hct MCV MCH MCHC RDW Plt Count MPV Immature Gran % (Auto) Neut % (Auto) Lymph % (Auto) [place] % (Auto) Eos % (Auto) Baso % (Auto) Lymph # (Auto) [place] # (Auto) Eos # (Auto) Baso # (Auto) Abs Immat Gran (auto) Absolute Neuts (auto) Absolute Nucleated RBC Nucleated RBC % (auto) Smear Tech's Comments Sodium 138 136 Potassium 2.8 L 2.8 L Chloride 98 101 Carbon Dioxide 26 Anion Gap 12 BUN 14 Creatinine 0.89 Estim Creat Clear Calc 85.6 Estimated GFR > 60 Random Glucose 110 Calcium 9.5 9.1 Magnesium Total Bilirubin 0.8 AST 19 ALT 13 Alkaline Phosphatase 81 Troponin I High Sens < 2.7 Total Protein 7.2 Albumin 4.3 TSH 1.03 Urine Color Urine Appearance Urine pH Ur Specific [place] Urine Protein Urine Glucose (UA) Urine Ketones Urine Blood Urine Nitrite Ur Leukocyte Esterase Urine RBC Urine WBC Ur Squamous Epith Cells Urine Bacteria Hyaline Casts Influenza Type A (PCR) NEGATIVE Influenza Type B (PCR) NEGATIVE RSV RNA Qual (PCR) NEGATIVE SARS-CoV-2 RNA (RT-PCR) NEGATIVE 04/29/23 04/30/23 04/30/23 20:35 01:31 05:22 WBC 3.0 L RBC 4.14 L Hgb 13.9 Hct 37.6 MCV 90.8 MCH 33.6 H MCHC 37.0 H RDW 11.3 Plt Count 154 L MPV 11.0 Immature Gran % (Auto) 0.0 Neut % (Auto) 22.7 L Lymph % (Auto) 60.9 H [place] % (Auto) 15.1 H Eos % (Auto) 1.0 Baso % (Auto) 0.3 Lymph # (Auto) 1.8 [place] # (Auto) 0.5 Eos # (Auto) 0.0 Baso # (Auto) 0.0 Abs Immat Gran (auto) 0.00 Absolute Neuts (auto) 0.7 L Absolute Nucleated RBC 0.000 Nucleated RBC % (auto) 0.0 Smear Tech's Comments VERIFIED Sodium 138 139 Potassium 3.3 3.4 Chloride 105 106 Carbon Dioxide 27 25 Anion Gap 9 L 11 L BUN 17 H Creatinine 0.85 Estim Creat Clear Calc 89.6 Estimated GFR > 60 Random Glucose 91 Calcium 9.2 Magnesium 2.2 Total Bilirubin AST ALT Alkaline Phosphatase Troponin I High Sens Total Protein Albumin TSH Urine Color Yellow Urine Appearance Clear Urine pH 5.5 Ur Specific [place] 1.025 Urine Protein Negative Urine Glucose (UA) Negative Urine Ketones Negative Urine Blood Negative Urine Nitrite Negative Ur Leukocyte Esterase Trace H Urine RBC 0-2 Urine WBC 0-5 Ur Squamous Epith Cells 0-2 Urine Bacteria None Seen Hyaline Casts 0-2 Influenza Type A (PCR) Influenza Type B (PCR) RSV RNA Qual (PCR) SARS-CoV-2 RNA (RT-PCR) Discharge Plan Discharge Anticipated Discharge Date/Time: 04/30/23 12:29 Patient Disposition: Home, Self-Care Discharge Diagnosis: dyspnea on exertion Referrals: Sasha Espino MD [Primary Care Provider] - 1 Week Discharge Orders: Discharge Order (Routine); Ordered 04/30/23 Ordered By: Wallace Moore Diet: Advance to usual diet Activity on Discharge: As tolerated Stand Alone Forms: Patient Portal Discharge page Other Ambulatory Orders: Basic Metabolic Panel (Routine) Timeframe: 1 Week Facility: [facility] - Location: Laboratory Ordered By: Wallace Moore Care Plan Goals: recovery Health Concerns: dyspnea on exertion, low potassium, ? of mild emphysema incidentally noted on CT chest Plan of Treatment: drink plenty of fluids, follow up labs in about 1 week, follow up with pcp, follow up labs still pending from hospital Assessment: see above
[2023-05-01 14:12] LABS: Adenovirus PCR Not Detected (Not Detect.); Bordetella parapertussis PCR Not Detected (Not Detect.); Bordetella pertussis PCR Not Detected (Not Detect.); Chlamydia pneumoniae PCR Not Detected (Not Detect.); Coronavirus 229E PCR Not Detected (Not Detect.); Coronavirus HKU1 PCR Not Detected (Not Detect.); Coronavirus NL63 PCR Not Detected (Not Detect.); Coronavirus OC43 PCR Not Detected (Not Detect.); Human metapneumovirus PCR Not Detected (Not Detect.); Influenza A PCR Not Detected (Not Detect.); Influenza B PCR Not Detected (Not Detect.); Mycoplasma pneumoniae PCR Not Detected (Not Detect.); Parainfluenza 1 PCR Not Detected (Not Detect.); Parainfluenza 2 PCR Not Detected (Not Detect.); Parainfluenza 3 PCR Not Detected (Not Detect.); Parainfluenza 4 PCR Not Detected (Not Detect.); RSV PCR Not Detected (Not Detect.); Rhino/Enterovirus PCR Not Detected (Not Detect.)
[2023-05-01 14:32] LABS: SARS-CoV-2 PCR Not Detected (Not Detect.)
[2023-05-04 23:53] LABS: A. Phagocytphilium DNA,RT-PCR NOT DETECTED (NOT DETECTED); Babesia Microti DNA, RT-PCR NOT DETECTED (NOT DETECTED); Borrelia Miyamotoi,DNA RT-PCR NOT DETECTED (NOT DETECTED); E.Chaffeensis DNA RT-PCR NOT DETECTED (NOT DETECTED); Lyme(Borrelia ssp)DNA RT-PCR NOT DETECTED (NOT DETECTED)
[2023-05-05 06:03] LABS: Copper, serum 149 mcg/dL (70-175)
[2023-05-05 09:38] LABS: Ceruloplasmin 34 mg/dL (18-53)
[2023-05-12 08:18] LABS: A1A Clinical Indication NG; A1A Referring Physician NG
== END 2023-04-30 13:45 | disposition home or self-care (01) ==
LOC: HO.ED 11:49 → HO.EDOVER 18:23
PROVIDERS: Physician Assistant Medical; Admitting Provider Physician Assistant; Emergency Provider Emergency Medicine Emergency Medical Services; PCP Family Medicine; Visit Provider Internal Medicine
DX: R06.00 Dyspnea, unspecified (principal); R07.9 Chest pain, unspecified; R00.2 Palpitations; E87.6 Hypokalemia; R09.02 Hypoxemia; D72.819 Decreased white blood cell count, unspecified; J43.9 Emphysema, unspecified; R06.02 Shortness of breath; R51.9 Headache, unspecified; M79.10 Myalgia, unspecified site; R42 Dizziness and giddiness; Z20.822 Contact with and (suspected) exposure to COVID-19; Z20.828 Contact with and (suspected) exposure to other viral communicable diseases
CPT/HCPCS: 0241U; 36415; 71275; 80048; 80051; 80053; 81001; 82104; 82390; 82525; 83735; 83880; 84443; 84484; 84702; 85025; 85610; 85730; 87468; 87469; 87478; 87484; 87633; 87798; 93005; 93306; 96365; 96366; 96372; 99222; 99285; J1650; J3480; Q9957; Q9967

== ENCOUNTER → 2023-04-29 11:17 | Outpatient (BNV) | payer OTHER, SELFPAY | PROVIDERS: Emergency Provider Emergency Medicine Emergency Medical Services; PCP Family Medicine; Visit Provider Internal Medicine | DX: R07.9 Chest pain, unspecified (principal) | CPT/HCPCS: 93010 ==

== ENCOUNTER 2023-04-29 18:02 | Outpatient (BNV) | payer OTHER, BC, SELFPAY | END 2023-04-30 07:00 | PROVIDERS: Admitting Provider Physician Assistant; Emergency Provider Emergency Medicine Emergency Medical Services; PCP Family Medicine; Visit Provider Internal Medicine | DX: R00.2 Palpitations (principal); R07.1 Chest pain on breathing | CPT/HCPCS: 93306 ==

== ENCOUNTER → 2023-04-29 18:02 | Outpatient (BNV) | payer BC, OTHER, SELFPAY | PROVIDERS: Admitting Provider Physician Assistant; Emergency Provider Emergency Medicine Emergency Medical Services; PCP Family Medicine; Visit Provider Physician Assistant | DX: M79.10 Myalgia, unspecified site (principal); R51.9 Headache, unspecified; R07.9 Chest pain, unspecified; R00.2 Palpitations; R06.09 Other forms of dyspnea; E87.6 Hypokalemia | CPT/HCPCS: 99223; 99239 ==